=== PATIENT | female | born 1995 | race Caucasian/White ===

== ENCOUNTER 2017-02-04 22:57 | Emergency (ER) | payer MEDICAID, OTHER ==
[~2017-02-04] VITALS: Ht 154.9 cm; Wt 71.8 kg
[~2017-02-04 22:57] MED LIST: METR500 PO
[2017-02-05] MEDS ORDERED: DiphenhydrAMINE HCL 25 MG CAPSULE PO ONE (00:30)
[2017-02-05 00:40] VITALS: BP 129/88
== END 2017-02-05 00:50 | disposition home or self-care (01) ==
LOC: EMS 22:58
DX: T63.481A Toxic effect of venom of other arthropod, accidental (unintentional), initial encounter (principal); Y92.89 Other specified places as the place of occurrence of the external cause
CPT/HCPCS: 99282